=== PATIENT | female | born 1950 | race Caucasian/White ===

== ENCOUNTER 2017-12-09 17:38 | Emergency (ER) | payer OTHER ==
[~2017-12-09] VITALS: Ht 165.1 cm; Wt 65.8 kg
--- NOTE | 2017-12-09 17:40 | NUR ---
KIRSTIE ZAPIEN, CURRENTLY AWAITING BED
[2017-12-09 17:41] VITALS: BP 132/83
--- NOTE | 2017-12-09 17:46 | NUR ---
CARMEN TRIAGED AND SENT TO ED BED 6 REPORT TO AMIRAH PETERSON
--- NOTE | 2017-12-09 17:47 | NUR ---
PT TAKEN TO BED 6 BY EMS CREW
--- NOTE | 2017-12-09 17:56 | NUR ---
PT FELL ONTO L SHOULDER S/P MECHANICAL FALL AT HOME. PT THINKS L SHOULDER IS DISLOCATED. CMS ON L ARM IS INTACT. NO ACUTE DISTRESS. RECV'D 100 MCG OF [place] BY EMS. A/OX4. - LOC. NO OTHER COMPLAINTS.
--- NOTE | 2017-12-09 18:12 | NUR ---
X-Ray at bedside.
--- NOTE | 2017-12-09 18:14 | NUR ---
XRAY AT BEDSIDE
[2017-12-09] MEDS ORDERED: fentaNYL 0.05 MG/ML VIAL IVP ONE ×2 (18:55→22:35)
[2017-12-09] MEDS ORDERED: KETOROLAC 30 MG/ML VIAL IVP ONE (18:55)
[2017-12-09] MEDS ORDERED: ONDANSETRON 4 MG/2 ML VIAL IVP ONE (18:55)
[2017-12-09 19:42] LABS: BASOPHILS % (AUTO) 0.8 % (0.0-2.0); EOSINOPHILS # (AUTO) 0.2 K/uL (0-0.4); EOSINOPHILS % (AUTO) 4.3 % (0.0-4.0); HEMOGLOBIN 12.2 g/dL (12.0-16.0); LYMPHOCYTES # (AUTO) 1.5 K/uL (2.5-16.5); LYMPHOCYTES % (AUTO) 26.9 % (20.5-51.1); MEAN CORPUSCULAR HEMOGLOBIN 29 pg (27-31); MEAN CORPUSCULAR HGB CONC 33 g/dL (33-37); MEAN CORPUSCULAR VOLUME 88.1 fL (80-94); MONOCYTES # (AUTO) 0.4 K/uL (0.8-1.0); MONOCYTES % (AUTO) 7.1 % (1.7-9.3); NEUTROPHILS # (AUTO) 3.4 K/uL (1.8-7.7); NEUTROPHILS % (AUTO) 60.9 % (42.2-75.2); PLATELET COUNT (AUTO) 238 K/uL (140-450); RED CELL DISTRIBUTION WIDTH 13.4 % (11.6-13.7); WHITE BLOOD COUNT (AUTO) 5.5 K/uL (4.8-10.8)
[2017-12-09 19:58] LABS: ALBUMIN 4.2 g/dL (3.4-5.0); ANION GAP 7.9 (8-16); CREATININE 0.7 mg/dL (0.6-1.3); POTASSIUM 3.9 mmol/L (3.5-5.1); TOTAL BILIRUBIN 0.3 mg/dL (0.0-1.0)
[2017-12-09 20:09] LABS: PROTHROMBIN TIME 9.8 secs (10.8-13.4)
--- NOTE | 2017-12-09 20:13 | NUR ---
Patient appears to be resting comfortably in bed. Vital Signs within normal limits. Respirations even and unlabored.
[2017-12-09 21:07] LABS: APPEARANCE,URINE CLEAR (CLEAR); BILIRUBIN,URINE NEGATIVE (NEGATIVE); BLOOD, URINE NEGATIVE (NEGATIVE); COLOR,URINE YELLOW (YELLOW); LEUKOCYTE ESTERASE ,URINE NEGATIVE (NEGATIVE); NITRITE, URINE NEGATIVE (NEGATIVE); PH,URINE 7.5 (5.0-9.0); UGLUCOSE NEGATIVE (NEGATIVE)
--- NOTE | 2017-12-09 21:45 | NUR ---
PT AMBULATED TO BATHROOM PER PT REQUEST, AMB WITH STEADY GAIT.
--- NOTE | 2017-12-09 22:04 | NUR ---
Patient to be transferred to [facility]. Is being transferred due to CONTINUATION OF CARE. Receiving facility has accepting physician and available space. ER physician has signed transfer form. Patient or responsible libertarian has agreed to transfer and signed form. Patient belongings inventoried and will be sent with patient. Copy of nursing notes, lab reports, EKG, Physicians Orders and X-rays to be sent with patient. Report called to ANDRE PETERSON at receiving facility. [facility] ambulance service has been called for transfer. ETA is 1 HR.
[2017-12-09] MEDS: MORPHINE SULFATE 4 MG/ML SYR IVP ONE ×2 (22:23→22:33)
--- NOTE | 2017-12-09 22:54 | NUR ---
[facility] AT BEDSIDE.
--- NOTE | 2017-12-09 23:16 | NUR ---
Patient Tranfers to outside Facility Physician:DR MARINELLI Location: [facility]
[2017-12-09 23:17] VITALS: BP 132/80
== END 2017-12-09 23:16 | disposition short-term general hospital (02) ==
LOC: MED 17:38
DX: S42.292A Other displaced fracture of upper end of left humerus, initial encounter for closed fracture (principal); I10 Essential (primary) hypertension; W19.XXXA Unspecified fall, initial encounter; Y93.89 Activity, other specified; Y92.89 Other specified places as the place of occurrence of the external cause; Y99.8 Other external cause status
CPT/HCPCS: 36415; 71045; 73030; 80053; 81003; 83880; 84484; 85025; 85610; 85730; 93005; 96374; 96375; 96376; 99285; J1885; J2270; J2405; J3010; Q0092

== ENCOUNTER 2018-10-05 16:30 | Emergency (ER) | payer OTHER ==
[~2018-10-05] VITALS: Ht 162.6 cm; Wt 59.0 kg
[2018-10-05 16:30] VITALS: BP 112/62
--- NOTE | 2018-10-05 16:30 | NUR ---
BIBA. PER EMS, C/O FAILURE TO THRIVE. DAUGHTER VISITED PATIENT AT PRIVATE RESIDENCE AND FOUND PATIENT DISHEVELED, UNABLE TO AMBULATE. DAUGHTER CALLED 911. PT AAO X4, FULL CLEAR SPEECH. FACIAL SYMMETRY. PERRLA BRISK 3 MM. EQUAL MATTIE STRENGTH TO UPPER AND LOWER EXTREMITIES. PT PLACED ON FULL DECORATING MACHINE OPERATOR AND SEIZURE PRECAUTIONS. HOB UP. BED SIDE RAILS UP X2. ON LOW BED POSITION, LOCKED. ER MADE AWARE OF PT STATUS.
--- NOTE | 2018-10-05 16:30 | NUR ---
BIBA. PER EMS, PT IS HERE FOR FAILURE TO THRIVE. DAUGHTER VISITED PATIENT AT [facility] AND FOUND PATIENT DISHEVELED, UNABLE TO AMBULATE. DAUGHTER CALLED 911. PT AAO X4, FULL CLEAR SPEECH. FACIAL SYMMETRY. PERRLA BRISK 3 MM. EQUAL MATTIE STRENGTH TO UPPER AND LOWER EXTREMITIES. PT PLACED ON FULL BENEFITS DIRECTOR. HOB UP. BED SIDE RAILS UP X2. ON LOW BED POSITION, LOCKED. ER MADE AWARE OF PT STATUS.
--- NOTE | 2018-10-05 16:30 | NUR ---
Albert cr in ED - 10/05/18 at 1656 by MMTHEM Patient CARMEN ZAPIEN from [facility], transferred to bed 11. RN evaluating patient at bedside.
--- NOTE | 2018-10-05 16:30 | NUR ---
Patient BIBA BLS, transferred to bed 11. RN evaluating patient at bedside.
[2018-10-05] MEDS ORDERED: NACL 0.9% 1,000 ML IV ONE (16:36)
[2018-10-05] MEDS ORDERED: MULTIVITAMIN-12 10 ML, THIAMINE 100 MG, MAGNESIUM SULFATE 50% 2,000 MG, FOLIC ACID 5 MG... IV ONE ×5 (16:36)
--- NOTE | 2018-10-05 16:36 | NUR ---
DR LAW AT BEDSIDE FOR PT EVAL
[2018-10-05] MEDS ORDERED: HYDR-5092 PO (16:49)
[2018-10-05] MEDS ORDERED: TRAZ-343 PO (16:49)
[2018-10-05] MEDS ORDERED: GABA300C PO (16:49)
[2018-10-05] MEDS ORDERED: CLON2TAB PO (16:49)
[2018-10-05 17:03] LABS: BASOPHILS % (AUTO) 0.7 % (0.0-2.0); EOSINOPHILS # (AUTO) 0.3 K/uL (0-0.4); HEMATOCRIT 33.6 % (36-48); HEMOGLOBIN 11.2 g/dL (12.0-16.0); LYMPHOCYTES # (AUTO) 1.2 K/uL (2.5-16.5); LYMPHOCYTES % (AUTO) 26.9 % (20.5-51.1); MEAN CORPUSCULAR HEMOGLOBIN 30 pg (27-31); MEAN CORPUSCULAR HGB CONC 33 g/dL (33-37); MEAN CORPUSCULAR VOLUME 88.6 fL (80-94); MONOCYTES # (AUTO) 0.4 K/uL (0.8-1.0); MONOCYTES % (AUTO) 8.6 % (1.7-9.3); NEUTROPHILS # (AUTO) 2.5 K/uL (1.8-7.7); NEUTROPHILS % (AUTO) 57.8 % (42.2-75.2); PLATELET COUNT (AUTO) 221 K/uL (140-450); RED CELL DISTRIBUTION WIDTH 13.3 % (11.6-13.7); WHITE BLOOD COUNT (AUTO) 4.4 K/uL (4.8-10.8)
[2018-10-05 17:20] LABS: ACETONE, SERUM NEGATIVE (NEGATIVE); MAGNESIUM 1.5 mg/dL (1.8-2.4); URIC ACID 3.6 mg/dL (2.6-7.2)
--- NOTE | 2018-10-05 17:21 | NUR ---
Patient taken to CT scan via gurney by [facility].
--- NOTE | 2018-10-05 17:31 | NUR ---
PATIENT RETURN FROM CT.
[2018-10-05 17:32] LABS: ANION GAP 9.4 (8-16); CARBON DIOXIDE 29.1 mmol/L (21-32); CHLORIDE 94 mmol/L (98-107); CREATININE 0.8 mg/dL (0.6-1.3); GFR ARICAN-AMERICAN 91 mL/min (>90); GLUCOSE 108 mg/dL (74-106); POTASSIUM 3.5 mmol/L (3.5-5.1); SODIUM SERUM 129 mmol/L (136-145); UREA NITROGEN, BLOOD 7 mg/dL (7-18)
[2018-10-05 17:37] LABS: ALBUMIN 3.6 g/dL (3.4-5.0); ASPARTATE AMINOTRANSFERASE 27 U/L (15-37); TOTAL BILIRUBIN 0.3 mg/dL (0.0-1.0)
[2018-10-05 18:03] LABS: APPEARANCE,URINE CLEAR (CLEAR); BILIRUBIN,URINE NEGATIVE (NEGATIVE); BLOOD, URINE NEGATIVE (NEGATIVE); COLOR,URINE YELLOW (YELLOW); LEUKOCYTE ESTERASE ,URINE NEGATIVE (NEGATIVE); NITRITE, URINE NEGATIVE (NEGATIVE); UGLUCOSE NEGATIVE (NEGATIVE)
[2018-10-05 18:30] LABS: BARBITURATE, URINE NEG. ng/ml (NEG <=200); BENZODIAZEPINE, URINE POS. ng/mL (NEG <=200); CANNABINOID, URINE NEG. ng/mL (NEG <=50); COCAINE, URINE NEG. ng/mL (NEG <=300); OPIATE, URINE POS. ng/mL (NEG <=2000); PHENCYCLIDINE SCREEN,URINE NEG. ng/mL (NEG <=25)
--- NOTE | 2018-10-05 19:20 | NUR ---
Pt report given to Eugenie Johnson. Transfer of care at this time.
--- NOTE | 2018-10-05 20:21 | NUR ---
CALLED SUDHAKAR DUENAS, PATIENT'S FAMILY FOR PICK-UP, NO ANSWER, LEFT MESSAGE
--- NOTE | 2018-10-05 20:44 | NUR ---
SPOKE TO SUDHAKAR, PATIENTS DAUGHTER MADE AWARE THAT PATIENT IS DC, SUDHAKAR WILL ARRANGE FOR TRANSPORTATION FOR PATIENT TO GO HOME
--- NOTE | 2018-10-05 21:06 | NUR ---
Patient's neighbors at bedside for picker box operator to take patient home.
[2018-10-05 21:10] VITALS: BP 127/60
--- NOTE | 2018-10-05 21:10 | NUR ---
IV removed, catheter intact and site benign. Applied folded 4x4 gauze and tape to stop bleeding. Odom cath removed. Patient tolerated tx well.
--- NOTE | 2018-10-05 21:11 | NUR ---
Patient discharged with v/s stable. Written and verbal after care instructions given and explained. Patient verbalized understanding. Ambulatory with steady gait. All questions addressed prior to discharge. Advised to follow up with PMD. Jesus patients neighbor here to help transport patient home, Carmen patients daughter made aware, arranged transportation
== END 2018-10-05 21:11 | disposition home or self-care (01) ==
LOC: MED 16:30
DX: F44.89 Other dissociative and conversion disorders (principal); E87.1 Hypo-osmolality and hyponatremia; E83.42 Hypomagnesemia; E86.0 Dehydration; F15.90 Other stimulant use, unspecified, uncomplicated; F11.90 Opioid use, unspecified, uncomplicated; I10 Essential (primary) hypertension; Z88.5 Allergy status to narcotic agent; Z79.899 Other long term (current) drug therapy
CPT/HCPCS: 36415; 70450; 71045; 80053; 80305; 81003; 82009; 83036; 83605; 83735; 84484; 84550; 85025; 85651; 86140; 93005; 96365; 96366; 99284; A9153; C1758; G0482; J3411; J3475; J3490; J7030; Q0092

== ENCOUNTER 2020-03-01 10:47 | Emergency (ER) | payer OTHER ==
[~2020-03-01] VITALS: Ht 154.9 cm; Wt 57.6 kg
[~2020-03-01 10:47] MED LIST: CLON2TAB PO; GABA300C PO; HYDR-5092 PO; TRAZ-343 PO
[2020-03-01 10:50] VITALS: BP 141/72
--- NOTE | 2020-03-01 10:59 | NUR ---
PT TAKEN TO BED 4.
[2020-03-01] MEDS ORDERED: KETOROLAC 60 MG/2 ML VIAL IM ONE (11:10)
--- NOTE | 2020-03-01 11:12 | NUR ---
70 y/o female from home c/o coccyx pain s/p fall 2 wks ago. Pt states she saw primary care s/p fall and told her she had bruise. 10/10 aching/sharp pain, worse upon ambulation began approx 5 days ago. Skin warm, dry, intact. Denies LOC with fall. VSS medhx: COPD, HTN, sciatica
--- NOTE | 2020-03-01 11:19 | NUR ---
Pt taken to xray via wheelchair
--- NOTE | 2020-03-01 11:34 | NUR ---
Pt returned from xray via wheelchair
[2020-03-01 12:41] VITALS: BP 141/72
--- NOTE | 2020-03-01 12:43 | NUR ---
Patient discharged with v/s stable. Written and verbal after care instructions given and explained. Patient alert, oriented and verbalized understanding of instructions. Ambulatory with steady gait. All questions addressed prior to discharge. ID band removed. Patient advised to follow up with PMD. Rx of Motrin 600mg and [place] 5mg-325mg given. Patient educated on indication of medication including possible reaction and side effects. Opportunity to ask questions provided and answered. Pt states her caretaker grounds will be picking her up and she will be calling
== END 2020-03-01 12:43 | disposition home or self-care (01) ==
LOC: MED 10:47
DX: S32.2XXA Fracture of coccyx, initial encounter for closed fracture (principal); M54.40 Lumbago with sciatica, unspecified side; I10 Essential (primary) hypertension; J44.9 Chronic obstructive pulmonary disease, unspecified; W19.XXXA Unspecified fall, initial encounter; Y93.89 Activity, other specified; Y92.89 Other specified places as the place of occurrence of the external cause; Y99.8 Other external cause status
CPT/HCPCS: 72220; 96372; 99283; J1885

== ENCOUNTER 2020-08-07 11:08 | Emergency (ER) | payer OTHER ==
[~2020-08-07] VITALS: Ht 162.6 cm; Wt 54.4 kg
[2020-08-07 11:12] VITALS: BP 137/65
[2020-08-07] MEDS ORDERED: KETOROLAC 30 MG/ML VIAL IVP ONE (11:35)
[2020-08-07 12:40] LABS: BASOPHILS # (AUTO) 0.1 K/uL (0.00-0.22); BASOPHILS % (AUTO) 1.6 % (0.0-2.0); EOSINOPHILS # (AUTO) 0.1 K/uL (0-0.4); EOSINOPHILS % (AUTO) 1.7 % (0.0-4.0); HEMOGLOBIN 13.2 g/dL (12.0-16.0); LYMPHOCYTES # (AUTO) 1.7 K/uL (2.5-16.5); LYMPHOCYTES % (AUTO) 29.6 % (20.5-51.1); MEAN CORPUSCULAR HEMOGLOBIN 30 pg (27-31); MEAN CORPUSCULAR HGB CONC 34 g/dL (33-37); MEAN CORPUSCULAR VOLUME 87.5 fL (80-94); MONOCYTES # (AUTO) 0.5 K/uL (0.8-1.0); MONOCYTES % (AUTO) 8.3 % (1.7-9.3); NEUTROPHILS # (AUTO) 3.5 K/uL (1.8-7.7); NEUTROPHILS % (AUTO) 58.8 % (42.2-75.2); PLATELET COUNT (AUTO) 289 K/uL (140-450); RED BLOOD CELL COUNT(AUTO) 4.46 MIL/uL (4.20-5.40); WHITE BLOOD COUNT (AUTO) 5.9 K/uL (4.8-10.8)
[2020-08-07 12:59] LABS: ALBUMIN 3.7 g/dL (3.4-5.0); ANION GAP 12.9 (8-16); ASPARTATE AMINOTRANSFERASE 30 U/L (15-37); CARBON DIOXIDE 26.9 mmol/L (21-32); CHLORIDE 91 mmol/L (98-107); GLUCOSE 86 mg/dL (74-106); LIPASE 138 U/L (73-393); SODIUM SERUM 128 mmol/L (136-145); TOTAL BILIRUBIN 0.7 mg/dL (0.0-1.0); UREA NITROGEN, BLOOD 19 mg/dL (7-18)
[2020-08-07 13:09] LABS: POTASSIUM 2.8 mmol/L (3.5-5.1)
[2020-08-07] MEDS ORDERED: NACL 0.9% 1,000 ML IV ONE (14:10)
[2020-08-07] MEDS ORDERED: KCL 20 MEQ/WATER INJ PREMIX 100 ML IV ONE (14:10)
[2020-08-07] MEDS ORDERED: LEMB5TAB PO (14:36)
[2020-08-07] MEDS ORDERED: AMLO5TAB PO (14:36)
[2020-08-07] MEDS ORDERED: POTASSIUM CHLORIDE 10 MEQ TABER PO ONE (15:00)
[2020-08-07 15:02] LABS: BILIRUBIN,URINE NEGATIVE (NEGATIVE); BLOOD, URINE NEGATIVE (NEGATIVE); COLOR,URINE YELLOW (YELLOW); LEUKOCYTE ESTERASE ,URINE 1+ (NEGATIVE); NITRITE, URINE POSITIVE (NEGATIVE); UGLUCOSE NEGATIVE (NEGATIVE)
[2020-08-07 15:06] LABS: APPEARANCE,URINE CLOUDY (CLEAR)
[2020-08-07 15:11] LABS: RBC,URINE NONE SEEN /HPF (0-5)
[2020-08-07] MEDS ORDERED: cefTRIAXone 1,000 MG VIAL ONE (16:34)
[2020-08-07 17:48] VITALS: BP 129/75
== END 2020-08-07 17:30 ==
LOC: MED 11:08
DX: E87.6 Hypokalemia (principal); N39.0 Urinary tract infection, site not specified; E86.0 Dehydration; R53.1 Weakness; G89.29 Other chronic pain; M54.5 Low back pain; J44.9 Chronic obstructive pulmonary disease, unspecified; Z79.899 Other long term (current) drug therapy; Z20.822 Contact with and (suspected) exposure to COVID-19
CPT/HCPCS: 36415; 74176; 80053; 81001; 83605; 83690; 85025; 87040; 87086; 87426; 96365; 96366; 96367; 96375; 99284; J0696; J1885; J3480; J7030; J7060

== ENCOUNTER 2020-09-30 11:03 | Emergency (ER) | payer OTHER ==
[~2020-09-30] VITALS: Ht 162.6 cm; Wt 64.0 kg
[~2020-09-30 11:03] MED LIST changes: +AMLO5TAB PO; +LEMB5TAB PO; -TRAZ-343 PO
[2020-09-30 11:07] VITALS: BP 175/112
[2020-09-30] MEDS ORDERED: MORPHINE SULFATE 4 MG/ML SYR IM ONE (11:45)
[2020-09-30] MEDS ORDERED: ONDANSETRON 4 MG ODT PO ONE (11:55)
[2020-09-30 12:50] LABS: BASOPHILS % (AUTO) 0.6 % (0.0-2.0); EOSINOPHILS # (AUTO) 0.9 K/uL (0-0.4); EOSINOPHILS % (AUTO) 15.8 % (0.0-4.0); HEMATOCRIT 35.6 % (36-48); HEMOGLOBIN 11.9 g/dL (12.0-16.0); LYMPHOCYTES # (AUTO) 0.9 K/uL (2.5-16.5); LYMPHOCYTES % (AUTO) 15.8 % (20.5-51.1); MEAN CORPUSCULAR HEMOGLOBIN 28 pg (27-31); MEAN CORPUSCULAR HGB CONC 33 g/dL (33-37); MEAN CORPUSCULAR VOLUME 85.1 fL (80-94); MONOCYTES # (AUTO) 0.4 K/uL (0.8-1.0); NEUTROPHILS # (AUTO) 3.3 K/uL (1.8-7.7); NEUTROPHILS % (AUTO) 60.8 % (42.2-75.2); PLATELET COUNT (AUTO) 229 K/uL (140-450); RED BLOOD CELL COUNT(AUTO) 4.18 MIL/uL (4.20-5.40); WHITE BLOOD COUNT (AUTO) 5.4 K/uL (4.8-10.8)
[2020-09-30 13:10] LABS: ALBUMIN 3.4 g/dL (3.4-5.0); ANION GAP 11.3 (8-16); ASPARTATE AMINOTRANSFERASE 35 U/L (15-37); CARBON DIOXIDE 32.3 mmol/L (21-32); CHLORIDE 101 mmol/L (98-107); CREATININE 0.7 mg/dL (0.6-1.3); GLUCOSE 113 mg/dL (74-106); POTASSIUM 3.6 mmol/L (3.5-5.1); SODIUM SERUM 141 mmol/L (136-145); TOTAL BILIRUBIN 0.4 mg/dL (0.0-1.0); UREA NITROGEN, BLOOD 15 mg/dL (7-18)
[2020-09-30] MEDS ORDERED: HYDROcodone/APAP 5/325 MG 1 TAB TAB PO ONE (15:40)
[2020-09-30 18:29] VITALS: BP 143/92
== END 2020-09-30 18:29 ==
LOC: MED 11:03
DX: S32.2XXA Fracture of coccyx, initial encounter for closed fracture (principal); Z20.822 Contact with and (suspected) exposure to COVID-19; I10 Essential (primary) hypertension; Z79.899 Other long term (current) drug therapy; W19.XXXA Unspecified fall, initial encounter; Y93.89 Activity, other specified; Y92.89 Other specified places as the place of occurrence of the external cause; Y99.8 Other external cause status
CPT/HCPCS: 36415; 72220; 80053; 85025; 87426; 96372; 99283; J2270; Q0162

== ENCOUNTER 2020-12-11 14:23 | Emergency (ER) | payer OTHER ==
[~2020-12-11] VITALS: Ht 162.6 cm; Wt 54.0 kg
[2020-12-11 14:27] VITALS: BP 136/52
--- NOTE | 2020-12-11 14:30 | NUR ---
PATIENT PRESENTS TO ED WITH CHRONIC LOW BACK PAIN X2 MONTHS WITHOUT OCCURENCE OF ACCIDENT/INJURY. PT STATES SHE RAN OUT OF HER NORCO, AND NOW HER PAIN IS UNCONTROLLED . DENIES N/V/D; SKIN IS PINK/WARM/DRY; AAOX4 WITH EVEN AND STEADY GAIT; LUNGS CLEAR BL; HR EVEN AND REGULAR; PT DENIES ANY FEVER, CP, SOB, OR COUGH AT THIS TIME; PATIENT STATES PAIN OF 8/10 AT THIS TIME; VSS; PATIENT POSITIONED FOR COMFORT; HOB ELEVATED; BEDRAILS UP X2; BED DOWN. ER MD MADE AWARE OF PT STATUS.
--- NOTE | 2020-12-11 14:31 | NUR ---
PATIENT WAITING IN LOBBY AT THIS TIME
--- NOTE | 2020-12-11 16:45 | NUR ---
Patient on bedside commode, stating she is unable to provide urine. Requesting catheter. CARLOS Parra made aware, states to proceed with catheter.
[2020-12-11] MEDS ORDERED: HYDROcodone/APAP 5/325 MG 1 TAB TAB PO ONE ×2 (17:05→17:50)
[2020-12-11] MEDS ORDERED: HYDR-5191 PO (18:08)
[2020-12-11 18:44] VITALS: BP 136/52
--- NOTE | 2020-12-11 18:44 | NUR ---
Patient discharged with v/s stable. Written and verbal after care instructions given and explained about chronic pain. Patient alert, oriented and verbalized understanding of instructions. Wheel Chair Assisted with to car. All questions addressed prior to discharge. ID band removed. Patient advised to follow up with PMD. Rx of [place] 10-325 given. Patient educated on indication of medication including possible reaction and side effects, educated on use of narcotics. Educated to not drink or drive while using. Opportunity to ask questions provided and answered.
== END 2020-12-11 18:44 | disposition home or self-care (01) ==
LOC: MED 14:23
DX: M54.5 Low back pain (principal); G89.29 Other chronic pain; I10 Essential (primary) hypertension; Z79.899 Other long term (current) drug therapy
CPT/HCPCS: 81002; 99283

== ENCOUNTER 2021-01-06 08:15 | Emergency (ER) | payer OTHER ==
[~2021-01-06] VITALS: Ht 152.4 cm; Wt 49.9 kg
[~2021-01-06 08:15] MED LIST changes: +HYDR-5191 PO
--- NOTE | 2021-01-06 08:15 | NUR ---
PT TO ER BED 3 WITH [facility].
--- NOTE | 2021-01-06 08:30 | NUR ---
70 Y/O FEMALE BIBA FROM HOME C/O 01/18 TAILBONE/R HIP PAIN X1.5 WEEKS. PT STATES "I TAKE 6 OR MORE NORCO A DAY BUT I RAN OUT OF MY NORCO 1.5 WEEKS AGO". PT STATES SHE AMBULATESAT HOME WITH WALKER BUT STATES SHE CANNOT WALK D/T PAIN. PT STATES SHE BROKE HER TAILBONE X1 YEAR AGO AND THE PAIN HAS NEVER GONE AWAY. PT STATES SHE HAS A CAREGIVER AT HOME. PT A/O X4 WITH EVEN AND UNLABORED RESPIRATIONS. PT IN GOWN ON SECURITY GUARD SUPERVISOR. PMH:COPD, HTN, ANXIETY NKDA
[2021-01-06 08:32] VITALS: BP 136/81
--- NOTE | 2021-01-06 08:48 | NUR ---
DR ZUNIGA AT BEDSIDE EVALUATING PT
[2021-01-06] MEDS ORDERED: fentaNYL citrate 0.05 MG/ML VIAL IVP ONE (08:55)
[2021-01-06] MEDS ORDERED: KETOROLAC 30 MG/ML VIAL IVP ONE (08:55)
--- NOTE | 2021-01-06 09:00 | NUR ---
PT UNABLE TO USE BED RM AT THIS TIME. PT PLACED IN DIAPER
--- NOTE | 2021-01-06 09:21 | NUR ---
PT TAKEN TO RAD VIA VIRIDIANA
--- NOTE | 2021-01-06 09:50 | NUR ---
PT BACK FROM RAD AND CONNECTED TO MONITOR
--- NOTE | 2021-01-06 10:09 | NUR ---
RONAK NIEVES SAMPLE COLLECTED AND HANDED TO SHELBI RUIZ TECH
--- NOTE | 2021-01-06 10:15 | NUR ---
LAB AT BEDSIDE
[2021-01-06] MEDS ORDERED: KETOROLAC 30 MG/ML VIAL ONE (10:19)
[2021-01-06] MEDS ORDERED: fentaNYL citrate 0.05 MG/ML VIAL ONE (10:19)
[2021-01-06 10:47] LABS: EOSINOPHILS # (AUTO) 0.1 K/uL (0-0.4); EOSINOPHILS % (AUTO) 2.3 % (0.0-4.0); HEMATOCRIT 45.6 % (36-48); LYMPHOCYTES # (AUTO) 1.1 K/uL (2.5-16.5); LYMPHOCYTES % (AUTO) 22.7 % (20.5-51.1); MEAN CORPUSCULAR HEMOGLOBIN 29 pg (27-31); MEAN CORPUSCULAR HGB CONC 33 g/dL (33-37); MEAN CORPUSCULAR VOLUME 87.5 fL (80-94); MONOCYTES # (AUTO) 0.2 K/uL (0.8-1.0); MONOCYTES % (AUTO) 4.3 % (1.7-9.3); NEUTROPHILS # (AUTO) 3.3 K/uL (1.8-7.7); NEUTROPHILS % (AUTO) 69.7 % (42.2-75.2); PLATELET COUNT (AUTO) 303 K/uL (140-450); RED BLOOD CELL COUNT(AUTO) 5.21 MIL/uL (4.20-5.40); RED CELL DISTRIBUTION WIDTH 15.5 % (11.6-13.7); WHITE BLOOD COUNT (AUTO) 4.7 K/uL (4.8-10.8)
--- NOTE | 2021-01-06 11:10 | NUR ---
PT TAKEN TO CT VIA VIRIDIANA
--- NOTE | 2021-01-06 11:32 | NUR ---
PT BACK FROM CT
--- NOTE | 2021-01-06 11:40 | NUR ---
#16 PAL[place] LANGLEY CATHETER INSERTED USING STERILE TECHNIQUE. RETURN OF 800ML OF CLEAR YELLOW URINE. PT TOLERATED PROCEDURE WELL. URINE SAMPLE COLLECTED AND WALKED TO LAB. PT CLEANED, REPOSITIONED FOR COMFORT. WILL CONTINUE TO MONITOR
[2021-01-06 11:42] LABS: ALBUMIN 4.7 g/dL (3.4-5.0); ASPARTATE AMINOTRANSFERASE 25 U/L (15-37); CARBON DIOXIDE 28.4 mmol/L (21-32); CHLORIDE 101 mmol/L (98-107); CREATININE 0.7 mg/dL (0.6-1.3); GLUCOSE 93 mg/dL (74-106); POTASSIUM 3.4 mmol/L (3.5-5.1); SODIUM SERUM 143 mmol/L (136-145); TOTAL BILIRUBIN 0.3 mg/dL (0.0-1.0); UREA NITROGEN, BLOOD 11 mg/dL (7-18)
[2021-01-06 12:29] LABS: APPEARANCE,URINE CLEAR (CLEAR); BILIRUBIN,URINE NEGATIVE (NEGATIVE); BLOOD, URINE NEGATIVE (NEGATIVE); COLOR,URINE YELLOW (YELLOW); LEUKOCYTE ESTERASE ,URINE 2+ (NEGATIVE); NITRITE, URINE NEGATIVE (NEGATIVE); PH,URINE 7.5 (5.0-9.0); UGLUCOSE NEGATIVE (NEGATIVE)
[2021-01-06 13:16] LABS: RBC,URINE 0-5 /HPF (0-5); WBC,URINE 16-25 (MOD) /HPF (0-5)
--- NOTE | 2021-01-06 13:50 | NUR ---
PT SLEEPING IN BED WITH EVEN AND UNLABORED RESPIRATIONS. PT REPOSITIONED IN BED FOR COMFORT. PT ON TOWER ERECTOR HELPER, WILL CONTINUE TO MONITOR
--- NOTE | 2021-01-06 15:01 | NUR ---
PT SLEEPING WITH EVEN AND UNLABORED RESPIRATIONS. BED IN LOWEST POSIION, BRAKES LOCKED X2 SIDERAILS UP FOR SAFETY. VSS. WILL CONTINUE TO MONTIOR
--- NOTE | 2021-01-06 16:20 | NUR ---
PT FOUND SELF MEDICATING WITH CLONAZEPAM 2MG. PT STATES SHE ONLY TOOK [address] TREVIZO MADE AWARE, WILL MONITOR. PT STATES SHE TOOK IT BECAUSE SHE IS FEELING ANXIOUS
[2021-01-06] MEDS ORDERED: cefTRIAXone 1,000 MG VIAL ONE (17:06)
--- NOTE | 2021-01-06 17:20 | NUR ---
SPOKE WITH PTS DAUGHTER JEANNETTE AND PROVIDED UPDATE. CALL FOR FURTHER UPDATES [phone]
[2021-01-06] MEDS ORDERED: MORPHINE SULFATE 4 MG/ML SYR IVP ONE (18:20)
--- NOTE | 2021-01-06 19:20 | NUR ---
REPORT GIVEN TO ADRIANA RN, TRANSFER OF CARE AT THIS TIME
--- NOTE | 2021-01-06 20:54 | NUR ---
patient c/o pain says that "the pain medication is wearing off". c/o pain a 01/18. NICKD made aware
--- NOTE | 2021-01-06 21:17 | NUR ---
Patient to be transferred to [facility]. Is being transferred due to higher level of care. Receiving facility has accepting physician and available space. ER physician has signed transfer form. Patient or responsible green party has agreed to transfer and signed form. Patient belongings inventoried and will be sent with patient. Copy of nursing notes, lab reports, EKG, Physicians Orders and X-rays to be sent with patient. Report called to Marti PETERSON at receiving facility. [facility] ambulance service has been called for transfer. ETA is [phone]. Patient will be going to [address] Bed 1.
--- NOTE | 2021-01-06 22:40 | NUR ---
patient complaining of 10/10 pain explaining that she "needs it really badly". ERMD made aware. no pain medication will be given per ERMD orders.
--- NOTE | 2021-01-06 22:42 | NUR ---
[facility] TRAN[facility]ORT AT BEDSIDE
[2021-01-06 23:04] VITALS: BP 112/53
--- NOTE | 2021-01-06 23:04 | NUR ---
PT TAKEN BY [facility]
== END 2021-01-06 23:04 | disposition short-term general hospital (02) ==
LOC: MED 08:15
DX: S72.091A Other fracture of head and neck of right femur, initial encounter for closed fracture (principal); M19.90 Unspecified osteoarthritis, unspecified site; Z87.81 Personal history of (healed) traumatic fracture; M51.36 Other intervertebral disc degeneration, lumbar region; Z20.822 Contact with and (suspected) exposure to COVID-19; J44.9 Chronic obstructive pulmonary disease, unspecified; I10 Essential (primary) hypertension; X58.XXXA Exposure to other specified factors, initial encounter; Y93.89 Activity, other specified; Y92.89 Other specified places as the place of occurrence of the external cause; Y99.8 Other external cause status
CPT/HCPCS: 36415; 51702; 72131; 72170; 73502; 73700; 80053; 81001; 85025; 87086; 87426; 96365; 96375; 99285; J0696; J1885; J2270; J3010